=== PATIENT | male | born 1945 | race Caucasian/White ===

== ENCOUNTER 2017-08-25 06:36 | Observation (INO) ==
--- NOTE | 2017-08-25 06:48 | Emergency Department Note ---
START Narrative - START START: Patient presents emergency room by EMS for tachycardia. He has a history of atrial fibrillation with rapid ventricular response. Patient denies any chest pain fevers chills nausea vomiting or diarrhea. Patient denies fevers chills chest pain at this point. Patient will have cardiac evaluation completed along with ventricular rate response. Vital signs are stable except for the tachycardia. EKG shows flutter rhythm at this time. Disposition treatment course to be completed by the daytime positions. Initial set evaluation completed without any complication. Laboratory workup ordered this point.
[2017-08-25 06:52] LABS: Basophils % 0.4 %; Eosinophils # 0.2 K/mcL (0.0-0.6); Eosinophils % 2.5 %; Hemoglobin 15.7 g/dL (12.9-16.9); Immature Granulocytes % 0.1 % (0-4); Lymphocytes # 1.4 K/mcL (0.6-4.6); Lymphocytes % 18.6 %; Mean Corpuscular HGB Conc 34.1 g/dL (31.6-35.5); Mean Corpuscular Hemoglobin 29.9 pg (28.0-33.3); Mean Corpuscular Volume 87.6 fL (83.0-100.0); Mean Platelet Volume 9.9 fL (9.4-12.4); Monocytes # 0.9 K/mcL (0.0-1.3); Platelet Count 207 K/mcL (140-400); Red Blood Count 5.25 M/mcL (4.19-5.50); Red Cell Distribution Width 12.7 % (11.5-14.5); Segmented Neutrophils % 66.4 %
[2017-08-25] MEDS ORDERED: dilTIAZem HCl 100 MG in D5% in Water 50 ML IVC SCH (07:00)
[2017-08-25 07:06] LABS: BUN/Creatinine Ratio 18 (6-26); Blood Urea Nitrogen 14 mg/dL (8-26); Calcium 9.5 mg/dL (8.6-10.8); Carbon Dioxide 23 mEq/L (19-29); Chloride 100 mEq/L (98-109); Glucose 105 mg/dL (70-99); Osmolality,Calculated 281 (280-300); Potassium 3.6 mEq/L (3.5-4.5); Sodium 135 mEq/L (136-145); eGFR For African Americans > 60 (> 60); eGFR For Non-African Americans > 60 (> 60)
[2017-08-25 07:08] LABS: INR 1.1; Prothrombin Time 11.9 Seconds (9.4-12.1)
[2017-08-25 07:10] LABS: Activated Partial Thrombo Time 27.5 Seconds (26.0-36.0)
--- NOTE | 2017-08-25 07:30 | Emergency Department Note ---
Disposition Clinical Impression: Palpitations Disposition: Admitted As Inpatient Condition: Fair Referrals: Neo Malloy MD [Primary Care Provider] - Forms: ED Satisfaction Letter Time of Disposition: 08:29 Arrhythmia/Palpitations HPI - General Chief Complaint: ED Arrhythmia/Palpitations Stated Complaint: palpitations Time Seen by Provider: 08/25/17 06:38 Source: patient, EMS Limitations: no limitations Nursing Notes Reviewed: Yes Vital Signs Reviewed: Yes - History of Present Illness HPI Narrative: Patient is a 72-year-old male with a history of palpitations or been worked up with no findings or diagnosis. He presented today with palpitations that started prior to his arrival to ER that lasted longer than usual the patient states that normally only last seconds and he coughs may go over this time are not resolving. He denies feeling ill prior to this event he denies feeling ill at the time is that he is just concerned because the palpitations when on longer than usual he is denying any lightheadedness no chest pain no shortness of breath., Denies nausea, diaphoresis, abdominal pain or any other concerns. States that at one point he wore a Holter monitor for 2 weeks and he was not diagnosed with the dysrhythmia according to him. - Related Data Allergies Allergy/AdvReac Type Severity Reaction Status Date / Time No Known Allergies Allergy Verified 08/25/17 06:54 Review of Systems: Constitutional: No fever, no diaphoresis Vision: No blurred vision ENT: No rhinorrhea CV: No chest pain, Positive for palpitations Respiratory: No cough, no shortness of breath Allergic: No allergies : No blood in urine GI: No nausea or vomiting Hematologic: No bruising Dermatologic: No skin rash Musculoskeletal: No pain in the extremities Neuro: No numbness of the extremities All systems ED: reviewed and negative except as stated. Past Medical History - Past Medical History Medical history: Reports: no medical history Psychiatric history: Reports: no psych history - Social History Smoking Status: Never smoker Alcohol use: Reports: none Drug use: Reports: none Physical Exam Patient is in no acute distress at this time. CONSTITUTIONAL: Well-appearing; well-nourished; A&O X 3, in no apparent distress. Patient is difficulty hearing but can still answer my questions appropriately. HEAD: Normocephalic; atraumatic EYES: PERRL, no scleral icterus NOSE: The nose is normal in appearance without rhinorrhea NECK: No JVD or distended neck veins RESP: Normal chest excursion with respiration; breath sounds clear and equal bilaterally; no wheezes, rhonchi, or rales CARD: tachycardic regular irregular rhythm, without murmurs, rub or gallop ABD: Non-distended; non-tender, soft, without rigidity, rebound or guarding,no pulsatile mass CHEST: No pain with palpation SKIN: Normal for age and race; warm and dry without diaphoresis ; no apparent lesions EXTREMITIES: Pulses are 2 plus and equal times 4 extremities, no peripheral edema or calf muscle pain - General Limitations: no limitations General appearance: alert, in no apparent distress Course Course Narrative: Patient is a 72-year-old male with no pertinent past medical history presenting with complaint of palpitations that are normal for him however today that lasted longer than usual. Upon arrival to the ER the patient had an EKG done that showed atrial flutter with a 2-1 conduction at a rate of 145. Basic labs and cardiac labs were ordered a chest x-ray and EKG were performed and the patient was ordered a Cardizem bolus and drip. We will reevaluate the patient status post Cardizem drip. We will also repeat EKG once his heart rate is within normal range. Patient is has a CHADSVASc Score of 1. - Reevaluation(s) Reevaluation #1: Patient's repeat EKG done at 7:35 shows a sinus rhythm at a rate of 77 bpm. Borderline right axis deviation. Good R-wave progression. CA is 147, QRS is 112, QTC is 402 and QTC is 434. The ST depression seen in V4 V5 and V6. It resolved on its repeat EKG. This is all new changes compared to his one done earlier today. Patient states that his palpitations have also resolved and he is feeling better. Patient's lab work is come back as well he does have an elevated TSH as well as a sodium of 135. His chest x-ray was normal. Plan is to call hospitalist admit the patient for further treatment evaluation. He agrees with this plan. Time: 07:43 Reevaluation #2: Spoke with Dr. Paulino and he agrees to accept the patient. Start him on Lovenox. Time: 08:29 Vital Signs Temperature 97.5 F L 08/25/17 06:37 Pulse Rate 150 11/04/17 06:37 Respiratory Rate 20 08/25/17 06:37 Blood Pressure 122/81 08/25/17 06:37 O2 Sat by Pulse Oximetry 100 08/25/17 06:37 Temperature 97.5 F L 08/25/17 06:37 Pulse Rate 78 08/25/17 07:59 Respiratory Rate 16 08/25/17 07:59 Blood Pressure 99/64 08/25/17 07:59 O2 Sat by Pulse Oximetry 99 08/25/17 07:59 Oxygen Delivery Oxygen Delivery Nasal Cannula Arrhythmia/Palpitations - Medical Records Medical records reviewed: Yes I reviewed the patient's medical records. - Lab Data Lab results reviewed: Yes I reviewed the patient's lab results. Result diagrams: 08/25/17 06:46 08/25/17 06:46 Lab Results 08/25/17 08/25/17 08/25/17 Range/Units 06:46 06:46 06:46 WBC 7.5 (4.3-11.1) K/mcL RBC 5.25 (4.19-5.50) M/mcL Hgb 15.7 (12.9-16.9) g/dL Hct 46.0 (37.5-50.1) % MCV 87.6 (83.0-100.0) fL MCH 29.9 (28.0-33.3) pg MCHC 34.1 (31.6-35.5) g/dL RDW 12.7 (11.5-14.5) % Plt Count 207 (140-400) K/mcL MPV 9.9 (9.4-12.4) fL Immature Gran % 0.1 (0-4) % Seg Neutrophils % 66.4 % Lymphocytes % 18.6 % Monocytes % 12.0 % Eosinophils % 2.5 % Basophils % 0.4 % Neutrophils # 5.0 (1.6-8.9) K/mcL Lymphocytes # 1.4 (0.6-4.6) K/mcL Monocytes # 0.9 (0.0-1.3) K/mcL Eosinophils # 0.2 (0.0-0.6) K/mcL Basophils # 0.0 (0.0-0.2) K/mcL PT 11.9 (9.4-12.1) Seconds INR 1.1 APTT 27.5 (26.0-36.0) Seconds Sodium 135 L (136-145) mEq/L Potassium 3.6 (3.5-4.5) mEq/L Chloride 100 (98-109) mEq/L Carbon Dioxide 23 (19-29) mEq/L BUN 14 (8-26) mg/dL Creatinine 0.76 (0.72-1.25) mg/dL Est GFR ( Amer) > 60 (> 60) Est GFR (Non-Af Amer) > 60 (> 60) BUN/Creatinine Ratio 18 (6-26) Glucose 105 H (70-99) mg/dL Calculated Osmolality 281 (280-300) Calcium 9.5 (8.6-10.8) mg/dL Troponin I (0-0.03) ng/mL TSH 6.090 H (0.350-4.840) mcIU/mL 08/25/17 Range/Units 06:46 WBC (4.3-11.1) K/mcL RBC (4.19-5.50) M/mcL Hgb (12.9-16.9) g/dL Hct (37.5-50.1) % MCV (83.0-100.0) fL MCH (28.0-33.3) pg MCHC (31.6-35.5) g/dL RDW (11.5-14.5) % Plt Count (140-400) K/mcL MPV (9.4-12.4) fL Immature Gran % (0-4) % Seg Neutrophils % % Lymphocytes % % Monocytes % % Eosinophils % % Basophils % % Neutrophils # (1.6-8.9) K/mcL Lymphocytes # (0.6-4.6) K/mcL Monocytes # (0.0-1.3) K/mcL Eosinophils # (0.0-0.6) K/mcL Basophils # (0.0-0.2) K/mcL PT (9.4-12.1) Seconds INR APTT (26.0-36.0) Seconds Sodium (136-145) mEq/L Potassium (3.5-4.5) mEq/L Chloride (98-109) mEq/L Carbon Dioxide (19-29) mEq/L BUN (8-26) mg/dL Creatinine (0.72-1.25) mg/dL Est GFR ( Amer) (> 60) Est GFR (Non-Af Amer) (> 60) BUN/Creatinine Ratio (6-26) Glucose (70-99) mg/dL Calculated Osmolality (280-300) Calcium (8.6-10.8) mg/dL Troponin I 0.02 (0-0.03) ng/mL TSH (0.350-4.840) mcIU/mL - Radiology Data Radiology results reviewed: Yes I reviewed the patient's radiology results. Chest X-Ray 08/25/17 06:46 IMPRESSION: No evidence of acute cardiopulmonary disease. D/ / Ruben Dowell MD / Ruben Dowell MD Interpreting Provider: Ruben Dowell MD - EKG Data EKG attestation: Yes I reviewed and interpreted this EKG. EKG results narrative: Patient's EKG done at 6:41 was interpreted by me. The EKG is atrial flutter at a rate of 145 beats per minutes with a 2-1 conduction. The patient also has what appears to be ST depression in leads V4 and V5 and mildly and V6 this could be due to the strain on his heart. Other than that I see no ST elevation and I see no Q waves. This is changed from his EKG done on 01/14/2007. Critical Care Time Critical Care Time: Yes Total Critical Care Time: 35 Attestation: Critical care time 35 minutes managing patient's rapid heart rate. Attestation Statement - Attestation Attestation: Patient was seen with resident physician. I reviewed the history, physical, assessment and plan, and agree with the findings. I also personally evaluated this patient and had [id number] time with this patient. 72-year-old male presents to emergency department with chief complaint of rapid heart rate. Patient says he has a history of palpitations since she was a teenager. Said She is usually last seconds to minutes. He has had multiple workups without finding anything. He is not taking medication for it. Today however he woke from sleep approximately 5 AM and had multiple hours of palpitations which she said is never happened before. This prompted his visit to the emergency department. He was given Cardizem by the shift superintendent caustic cresylate team which resolved his symptoms. He says he feels fine now he denies chest pain and says he has not had it. Also denies fevers chills or any other complaints. On examination vital signs by the time I saw the patient were stable. ENT is unremarkable. Heart and lungs were both normal. Abdomen is soft and nontender. Extremities unremarkable. Neurologically intact. ED course patient was originally signed out for the shift superintendent caustic cresylate team. He will be given Cardizem bolus and a Cardizem drip which resolved his heart rate. He also resolve some cardiac strain that was seen on his EKG. Other laboratory testing was essentially unremarkable. We discussed the case with cardiology who recommended hospitalization with the hospitalist service. We call the hospitalist service to arrange for admission and agreed to accept the patient. Patient was hemodynamically stable throughout my care of him. He will be admitted to the hospital for further evaluation treatment. Agree with resident physician assessment plan. Critical care time was 35 minutes.
[2017-08-25] MEDS ORDERED: *HR* Enoxaparin 60 MG/0.6 ML SYRINGE SQ SCH ×2 (08:35→18:00)
--- NOTE | 2017-08-25 09:41 | Internal Med History&Physical ---
Date of Encounter: 08/25/17 Time of Encounter: 09:37 Assessment and Plan (1) Atrial flutter Current visit: Yes Status: Acute Spontaneous jainism of normal sinus rhythm. Patient blood pressure is running on the local side with systolic on the 90s and this was after discontinuation of Cardizem drip. I will hold off starting antiarrhythmic medications for now. If blood pressure improves afterwards may consider starting a low-dose beta milena or calcium channel milena. Patient ChadVasc score is at least one because of age being 72. He has no other medical problems. We check echocardiogram. Await cardiology input for decision of long -term anticoagulation. Patient mentioned that he has long history of vertigo but these episodes have been according more frequent recently. Although I suspect this is peripheral vertigo given the long duration of symptoms, I will check carotid Doppler's as well as MRI of the brain given the new diagnoses of atrial flutter. Will keep the patient on anticoagulation for now Qualifiers: Qualified Code(s): I48.92 - Unspecified atrial flutter Internal Medicine - H&P: HPI Chief complaint: palpitations History of present illness: Mr. Pickard is a 72 year old male presents to the emergency room today with a main component of palpitations. After awakening approximately 5 AM patient started experiencing palpitations which he describes as rapid and regular. Patient put his hands on the carotids and noticed that heart is beating fast. He had similar prior experiences that lasts for short periods and are aborted by coughing or bearing down. He attempted these maneuvers without resolution of his arrhythmia so presented to the emergency room. He was found to be in aflutter rate 150 beat per minute. This lasted for approximately 2 hours duration till jainism of normal sinus rhythm. Sinus rhythm was restored spontaneously as cardizem drip was initiated. Patient noted during the arrhythmia he was short of breath. Patient had prior investigations in the form also holter monitors which is not picked the arrhythmia. Patient denies history of falls. No prior G.I. bleeding. Patient mentioned that for a long time he has been having symptoms of vertigo the symptoms have been according more frequent recently. He has no medical problems otherwise Past Med Surg Social Fam HX - Past Medical History Medical history: no medical history Psychiatric history: no psych history - Social History Smoking Status: Never smoker Alcohol use: none Drug use: none Internal Medicine - H&P: Meds 3 Allergy/AdvReac Type Severity Reaction Status Date / Time No Known Allergies Allergy Verified 08/25/17 06:54 All Systems PM: A 10-system review of systems was performed and is negative for pertinent findings except as documented above in the HPI. Review of systems: 10 point review of systems is negative except for HPI - Constitutional Vitals: Temp Pulse Resp BP Pulse Ox 97.9 F 66 16 99/62 99 08/25/17 09:21 08/25/17 09:21 08/25/17 09:21 08/25/17 09:21 08/25/17 09:21 Exam: Gen.: patient is alert oriented times 3 cardiac: normal S1 S2 no additional sounds or murmurs chest: no active wheezing or bronchial breathing abdomen soft nontender nondistended normal bowel sounds lower extremity no swelling. Neuro: no new focal deficits Internal Med - H&P Results - Labs CBC & Chem 7: 08/25/17 06:46 08/25/17 06:46
--- NOTE | 2017-08-25 12:53 | Cardiology Consult Note ---
Date of Encounter: 08/25/17 Time of Encounter: 12:30 Assessment and Plan (1) Tachycardia Current Visit: Yes Status: Acute Per cardiology: -ECG with atrial flutter versus atrial tachycardia, HR 145. -Reports palpitations since he was a teenager. -States no one has been able to "catch" rhythm. -[id number] score 1 (age). Recommend ASA 81mg. -Currently SR. Denies current palpitations. -Echo pending. -Recommend ASA 81mg daily, started per primary service. Of note, patient reports allergy to ASA. States he took a 325mg ASA "Years" ago and had itching. Denies rash, hives, difficulty breathing, or difficulty swallowing with ASA. -Recommend starting toprol 12.5mg daily, however patient prefers to have PRN medication instead of daily. -Further recommendations pending echo. Discussion w patient/family: The assessment and plan as outlined above was discussed with the patient and/or family members who expressed understanding and agreement. All questions were answered. Thank you for involving us in the care of your patient. Please call with any questions. Discussed and reviewed with . History of Present Illness Consult date: 08/25/17 Requesting physician: Darryl Paulino Consult reason: a.flutter Chief complaint: palpitations History of present illness: Mr. Pickard is a 72 year old male with a relevant past medical history of skin cancer and palpitations. Patient reports he has had intermittent palpitations for years and was always able to control them by coughing. Patient reports he had an episode of palpitations this morning and was not able to get it to stop. Patient presented to [facility]. Patient denies chest pain or shortness of breath. Patient denies increased fatigue. Past Med Surg Social Fam HX - Past Medical History Attestation: Yes The following information was validated with the patient. Source: patient Medical history: cancer (skin) Psychiatric history: no psych history - Social History Smoking Status: Never smoker Alcohol use: none Drug use: none Medications and Allergies No Known Home Drugs 08/25/17 [History] 3 Allergy/AdvReac Type Severity Reaction Status Date / Time aspirin Allergy Itching Verified 08/25/17 10:43 All Systems Review: A 10-system review of systems was performed and is negative for pertinent findings except as documented above in the HPI. - Cardiovascular Cardiovascular: as per HPI, palpitations Physical Examination Vital Signs, Last 4 Hours Temp Pulse Resp BP Pulse Ox 08/25/17 09:21 97.9 F 66 16 99/62 99 08/25/17 09:02 14 91/65 General: Conversant, No Apparent Distress HEENT: Atraumatic, Normocephaly, Mucus Membranes Moist Neck: No JVD, Normal carotid pulses Cardiac: Reg Rate and Rhythm, Normal S1 and S2, No Murmur Lungs: Normal Breath Sounds, No Wheeze, Rales, Rhonchi Neuro: Alert and responsive, No focal deficits noted Abdomen: Soft, Non-Tender Skin: No rashes noted on visualized skin Musculoskeletal: No Chest Wall Tenderness Extremities: No Clubbing, No Cyanosis, No Edema, Normal Pulses Results 08/25/17 06:46 08/25/17 06:46 Impressions Chest X-Ray 08/25/17 06:46 IMPRESSION: No evidence of acute cardiopulmonary disease. D/ / 08/25/2017 08:49:31 Ruben Dowell MD / suha Interpreting Provider: Ruben Dowell MD Brain MRI 08/25/17 09:32 IMPRESSION: No acute intracranial abnormality. Specifically, no acute infarction. Sequela of mild chronic microvascular ischemic changes. D/ / Derrell Heller MD / Derrell Heller MD Interpreting Provider: Derrell Heller MD Active Medications Enoxaparin Sodium (Lovenox) 60 mg 1 mg/kg (60 mg) SQ Q12HR OTTO PRN Reason: Protocol Stop: 02/24/18 08:36 Last Admin: 08/25/17 08:48 Dose: 60 mg Famotidine (Pepcid) 20 mg PO BID OTTO PRN Reason: Protocol Stop: 02/24/18 21:01 Laboratory Tests 08/25/17 08/25/17 08/25/17 06:46 06:46 06:46 Hgb 15.7 Potassium 3.6 Creatinine 0.76 Troponin I 0.02 TSH 6.090 H - Imaging and Cardiology Chest Xray: report reviewed Echo: pending - EKG Interpretation EKG results cardiology: personally reviewed (ECG with atrial flutter vs atrial tachycardia, HR 145.), other (Telemetry reviewd with average HR 65, sinus rhythm. PACs noted.) Consult Discharge Plan - Plan Referrals: Neo Malloy MD [Primary Care Provider] -
[2017-08-25] MEDS: Aspirin Enteric Coated 81 MG Tablet PO SCH (15:43)
[2017-08-25] MEDS: Metoprolol XL (24 HR) Succ 25 MG TAB.ER.24H PO SCH (15:43)
[2017-08-25] MEDS: *HR* Heparin 5,000 UNIT/ML VIAL SQ SCH (17:43)
[2017-08-25] MEDS: Famotidine 20 MG TABLET PO SCH (20:24)
[2017-08-26 03:27] LABS: Basophils # 0.1 K/mcL (0.0-0.2); Eosinophils # 0.2 K/mcL (0.0-0.6); Hematocrit 38.7 % (37.5-50.1); Immature Granulocytes % 0.4 % (0-4); Lymphocytes # 1.1 K/mcL (0.6-4.6); Lymphocytes % 20.7 %; Mean Corpuscular HGB Conc 34.4 g/dL (31.6-35.5); Mean Corpuscular Hemoglobin 30.3 pg (28.0-33.3); Mean Corpuscular Volume 88.2 fL (83.0-100.0); Mean Platelet Volume 10.4 fL (9.4-12.4); Monocytes # 0.6 K/mcL (0.0-1.3); Monocytes % 11.7 %; Neutrophils # 3.3 K/mcL (1.6-8.9); Platelet Count 209 K/mcL (140-400); Red Blood Count 4.39 M/mcL (4.19-5.50); Red Cell Distribution Width 12.7 % (11.5-14.5); Segmented Neutrophils % 62.2 %
[2017-08-26 03:40] LABS: Hemoglobin 13.3 g/dL (12.9-16.9)
[2017-08-26 03:41] LABS: BUN/Creatinine Ratio 18 (6-26); Blood Urea Nitrogen 13 mg/dL (8-26); Calcium 8.5 mg/dL (8.6-10.8); Carbon Dioxide 28 mEq/L (19-29); Chloride 103 mEq/L (98-109); Glucose 92 mg/dL (70-99); Magnesium 2.2 mg/dL (1.6-2.6); Osmolality,Calculated 284 (280-300); Potassium 3.9 mEq/L (3.5-4.5); Sodium 137 mEq/L (136-145); eGFR For African Americans > 60 (> 60); eGFR For Non-African Americans > 60 (> 60)
[2017-08-26] MEDS: *HR* Heparin 5,000 UNIT/ML VIAL SQ SCH (04:24)
[2017-08-26 07:13] VITALS: BP 117/80
[2017-08-26] MEDS: Famotidine 20 MG TABLET PO SCH (08:04)
[2017-08-26] MEDS: Aspirin Enteric Coated 81 MG Tablet PO SCH (08:05)
[2017-08-26] MEDS: Metoprolol XL (24 HR) Succ 25 MG TAB.ER.24H PO SCH (08:10)
[2017-08-26] MEDS ORDERED: Aspirin 81 MG TAB.CHEW PO SCH (09:00)
--- NOTE | 2017-08-26 09:21 | Cardiology Progress Note ---
Date of Encounter: 08/26/17 Time of Encounter: 08:30 Assessment and Plan (1) Tachycardia Current Visit: Yes Status: Acute Per cardiology: -ECG with atrial flutter versus atrial tachycardia, HR 145. -Reports palpitations since he was a teenager. -States no one has been able to "catch" rhythm. -Dccwf2levf score 1 (age). Recommend ASA 81mg. Patient states tolerated ASA 81mg ok. -Average HR previous 12 hours noted to be 54, sinus bradycardia. -TTE with LVEF 60%, mild diastolic dysfunction, all wall segments with normal motion. -On beta milena. -Cardiology will sign off and will follow in outpatient setting. Follow up set. Discussion w patient/family: The assessment and plan as outlined above was discussed with the patient who expressed understanding and agreement. All questions were answered. Thank you for involving us in the care of your patient. Please call with any questions. Discussed and reviewed with . Subjective Principal diagnosis: tachycardia Interval history: Patient states he feels well this morning. Patient states he did not have any sustained episodes of palpitations last night. Patient reports he had a few palpitations that lasted for a few seconds and then resolved. Objective Vital Signs, Last 4 Hours Temp Pulse Resp BP Pulse Ox 08/26/17 07:12 98.2 F 53 16 117/80 97 General: Conversant, No Apparent Distress HEENT: Atraumatic, Normocephaly, Mucus Membranes Moist Neck: No JVD, Normal carotid pulses Cardiac: Reg Rate and Rhythm, Normal S1 and S2, No Murmur Lungs: Normal Breath Sounds, No Wheeze, Rales, Rhonchi Neuro: Alert and responsive, No focal deficits noted Abdomen: Soft, Non-Tender Skin: No rashes noted on visualized skin Musculoskeletal: No Chest Wall Tenderness Extremities: No Clubbing, No Cyanosis, No Edema, Normal Pulses Results 08/26/17 02:44 08/26/17 02:44 Lab Results Impressions Brain MRI 08/25/17 09:32 IMPRESSION: No acute intracranial abnormality. Specifically, no acute infarction. Sequela of mild chronic microvascular ischemic changes. D/ / Derrell Heller MD / Derrell Heller MD Interpreting Provider: Derrell Heller MD Echocardiogram 08/25/17 09:32 Impressions: LVEF 60%. Normal LV chamber size, wall thickness and function. Mild left ventricular diastolic dysfunction. Normal right ventricular structure and function. No evidence of pulmonary hypertension. No significant valvular dysfunction. Left Ventricular Wall Motion: Rest Echo Findings All wall segments showed normal motion. Findings: Study Quality * Technically adequate exam. ECG Findings * Sinus bradycardia. Left Ventricle * LVEF 60%. * Normal LV chamber size, wall thickness and function. * Mild left ventricular diastolic dysfunction. Right Ventricle * Normal right ventricular structure and function. Left Atrium * Normal left atrial size. Right Atrium * Normal right atrial size. Interatrial Septum * Interatrial septum not well evaluated. Aortic Valve * Aortic valve not well visualized. * Sclerotic, trileaflet appearing. * No aortic stenosis. * No aortic regurgitation. Mitral Valve * Normal mitral valve structure and function. * No mitral regurgitation. * No mitral stenosis. Tricuspid Valve * Normal tricuspid valve structure and function. * Trace tricuspid regurgitation. * No evidence of pulmonary hypertension. Pulmonic Valve * Pulmonic valve not well visualized. Aorta * Normally sized aortic root. Pericardium * The pericardium appears normal. IVC * Normal IVC dimensions and inspiratory collapse. Pulmonary Artery * Normal visualized portions of the main pulmonary artery. Active Medications Aspirin (Aspirin Ec) 81 mg PO DAILY [facility] Stop: 02/24/18 14:01 Last Admin: 08/26/17 08:05 Dose: 81 mg Famotidine (Pepcid) 20 mg PO BID [facility] PRN Reason: Protocol Stop: 02/24/18 21:01 Last Admin: 08/26/17 08:04 Dose: 20 mg Heparin Sodium (Porcine) (Heparin) 5,000 unit SQ Q12HCO [facility] Stop: 02/24/18 18:01 Last Admin: 08/26/17 04:24 Dose: 5,000 unit Metoprolol Succinate (Toprol Xl) 12.5 mg PO DAILY [facility] Stop: 02/24/18 14:01 Last Admin: 08/26/17 08:10 Dose: 12.5 mg Laboratory Tests 08/26/17 08/26/17 02:44 02:44 Hgb 13.3 D Potassium 3.9 Creatinine 0.71 L Magnesium 2.2 - Imaging and Cardiology Chest Xray: report reviewed Echo: report reviewed - EKG Interpretation EKG results cardiology: other (Telemetry reviewed with average HR previous 12 hours noted to be 54, sinus bradycardia. PVCs noted.) Consult Discharge Plan - Plan Referrals: Neo Malloy MD [Primary Care Provider] -
--- NOTE | 2017-08-26 09:41 | Discharge Summary ---
Date of Encounter: 08/26/17 Time of Encounter: 09:38 - Discharge Diagnosis (1) Atrial flutter Priority: Primary Status: Acute Qualifiers: Atrial flutter type: typical Qualified Code(s): I48.3 - Typical atrial flutter (2) Palpitations Priority: Secondary Status: Chronic (3) Vertigo Priority: Secondary Status: Chronic - Discharge Medications Prescriptions: Metoprolol XL (24 HR) Succ [Toprol Xl] 12.5 mg PO DAILY #30 tab.er.24h Home Medications: Aspirin Enteric Coated [Aspirin EC] 81 mg PO DAILY tablet. 08/26/17 [Rx] Metoprolol XL (24 HR) Succ [Toprol Xl] 12.5 mg PO DAILY #30 tab.er.24h 08/26/17 [Rx] Allergies/Adverse Reactions: 3 Allergy/AdvReac Type Severity Reaction Status Date / Time aspirin Allergy Itching Verified 08/25/17 10:43 Procedures/tests Complete & Pending: Procedures Performed prior 72 hours Category Date Time Status MR head/brain wo con [MR] Routine MRI 08/25/17 09:32 Completed EV carotid duplex imaging BI Routine Y 08/25/17 09:32 Completed EV echocardiogram Routine Y 08/25/17 09:32 Completed Date of admission: 08/25/17 08:39 Primary care physician: Neo Malloy MD Consults: 08/25/17 09:32 Consult to Cardiology [CONS] Routine Comment: Consulting Provider: Cardiology Lisa Reason for Consult: New onset A flutter Call Completed: Yes Consult to Physical Therapy [CONS] Routine Comment: Evaluate, develop and implement POC Reason for Consult: weakness Discharging clinician: Khris Rush Anticipated date of discharge: 08/26/17 - Patient Status Disposition: Home, Self-Care Condition: Good Functional capacity at discharge: independent ambulation Overall status at discharge: patient is progressing back to baseline - Discharge Instructions Follow Up With: Neo Malloy MD [Primary Care Provider] - - Diet and Activity Activity: increase activity as tolerated Diet: advance to your usual diet Hospital course: Mr. Pickard is a 72 year old male with hx of palpitations since he was a teenager presented to ED with tachycardia and palpitations. Found to be in presumptive a flutter (vs. rapid a fib). He has spontaneous conversion to NSR. He was placed in observation for further eval and treatment. Mr Pickard was placed in observation on med tele. He remained in NSR. His CHADSVASC was 1. He was seen by cardiology and started on low dose Toprol XL 12.5mg daily and ASA 81mg daily. He tolerated this well. Due to issues with vertigo (chronic) MRI was done which did not show CVA. Carotid ultrasound was negative. No other abnormalities. On 08/26 he was up and moving. He remained in NSR. He was afebrile with stable vitals and was felt ready for discharge home. - Time Spent with Patient Total time spent providing and/or coordinating discharge services: - Constitutional Vitals: Temp Pulse Resp BP Pulse Ox 98.2 F 53 16 117/80 97 08/26/17 07:12 08/26/17 07:12 08/26/17 07:12 08/26/17 07:12 08/26/17 07:12 General appearance: Present: A&O X 3, pleasant, answers questions appropriately - Head Head exam: Present: normocephalic - Eye Eye exam: Present: conjuntiva pink - ENT ENT exam: Present: mucous membranes moist - Respiratory Respiratory exam: Present: CTAB. Absent: rhonchi, wheezes - Cardiovascular Cardiovascular exam: Present: RRR. Absent: tachycardia - GI/Abdominal GI/Abdominal exam: Present: soft. Absent: tenderness - Extremities Exam Extremities exam: Present: warm. Absent: tenderness - Neurological Exam Neurological exam: Present: alert, oriented X3 Additional comments: Very FALSE PASS - Skin Skin exam: Present: warm. Absent: rash
--- NOTE | 2017-08-27 09:29 | Electrocardiograph Report ---
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
--- NOTE | 2017-08-27 09:29 | Electrocardiograph Report ---
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
[2017-08-29 17:53] LABS: CK-BB (CK isoenzymes) 0 % (0-0); CK-MB (CK isoenzymes) 0 % (0-4); CK-MM (CK-isoenzymes) 100 % (96-100)
[2017-08-30 07:12] LABS: CK Total (Ck Isoenzymes) 101 U/L (20-200)
== END 2017-08-26 13:40 | disposition home or self-care (01) ==
LOC: EMEROO 06:36 → 2NENU 06:36
PROVIDERS: ADMIT Hospitalist; ATTEND Internal Medicine